=== PATIENT | male | born 1975 | race Caucasian/White ===

== ENCOUNTER → 2016-03-20 | Outpatient (CLI) | payer MEDICARE, BC ==
[~2016-03-20] MED LIST: DEPAKOTE ER 50500 MG PO; ESKALITH C450 MG/TAB PO; KLONOPIN WAFERS1 MG PO
== END ==
LOC: BHSO 13:00
DX: F20.89 Other schizophrenia (principal)

== ENCOUNTER → 2016-05-22 | Outpatient (CLI) | payer MEDICARE, BC | LOC: BHSO 12:37 | DX: F20.9 Schizophrenia, unspecified (principal) ==

== ENCOUNTER → 2016-08-19 | Outpatient (CLI) | payer MEDICARE, BC | LOC: BHSO 09:58 | DX: F20.9 Schizophrenia, unspecified (principal) ==

== ENCOUNTER → 2016-11-18 | Outpatient (CLI) | payer MEDICARE, BC | LOC: BHSO 09:56 | DX: F20.9 Schizophrenia, unspecified (principal) ==

== ENCOUNTER → 2017-02-13 | Outpatient (CLI) | payer MEDICARE, BC | LOC: BHSO 13:20 | DX: F20.9 Schizophrenia, unspecified (principal) | CPT/HCPCS: G0463 ==

== ENCOUNTER 2018-07-20 17:52 | Emergency (ER) | payer MEDICARE, BC ==
[2018-07-20 17:59] VITALS: BP 144/116; TEMP 97.5
[2018-07-20 18:23] LABS: BASO # 0.1 (0.0-0.2); BASO % 1.1 % (0.0-2.0); EOS # 0.2 (0.0-0.7); EOS % 3.4 % (0-4.0); GRAN # 3.3 (1.4-6.5); GRAN % 57.3 % (42.2-75.2); HEMATOCRIT 42.9 % (42.0-52.0); HEMOGLOBIN 15.2 g/dl (13.5-18.0); LYMPH # 1.5 (1.2-3.4); LYMPH % 26.5 % (20.0-51.0); MEAN CELL VOLUME 87 fl (80.0-100.0); MEAN CORPUSCULAR HEMOGLOBIN 31 pg (27.0-31.0); MEAN CORPUSCULAR HGB CONC 35 g/dl (33.0-37.0); MEAN PLATELET VOLUME 10.7 fl (7.4-10.4); MONO # 0.7 (0.1-0.6); MONO % 11.5 % (1.7-9.3); PLATELET COUNT 175 K/mm3 (130-400); RED BLOOD COUNT 4.93 M/mm3 (4.20-5.60); REDCELL DISTRIBUTION WIDTH-CV 11.3 % (11.5-14.5)
[2018-07-20 18:38] LABS: ALANINE AMINOTRANSFERASE 11 U/L (21-72); ALBUMIN 4.4 gm/dL (3.5-5.0); ALKALINE PHOSPHATASE 63 U/L (50-136); ANION GAP 14 mmol/L (7-16); AST,SGOT 48 U/L (15-37); BILIRUBIN,TOTAL 0.5 mg/dL (0.0-1.0); BLOOD UREA NITROGEN 12 mg/dL (9-20); CARBON DIOXIDE 25 mmol/L (22-30); CHLORIDE 98 mmol/L (98-107); CREATININE, serum 1.12 (0.66-1.25); GLUCOSE 174 mg/dL (74-106); SODIUM 136 mmol/L (137-145); TOTAL PROTEIN 7.7 gm/dL (6.4-8.2)
[2018-07-20 18:43] LABS: C-REACTIVE PROTEIN < 0.5 mg/dL (0.0-0.9)
[2018-07-20 18:53] LABS: LITHIUM < 0.2 mmol/L (0.6-1.2)
[2018-07-20] MEDS ORDERED: DEPAKENE 250 MG/1 ML PO (18:56)
[2018-07-20] MEDS ORDERED: LATUDA40 MG PO (18:56)
[2018-07-20] MEDS ORDERED: KLONOPIN 1MG1 MG PO (18:56)
[2018-07-20] MEDS ORDERED: LITHIUM CI8 MEQ/5 ML PO (18:57)
[2018-07-20] MEDS ORDERED: PRELONE15 MG/5 ML PO (20:08)
[2018-07-20] MEDS ORDERED: FAMVIR 500500 MG/TAB PO (20:08)
[2018-07-20 20:44] VITALS: PULSE 81
== END 2018-07-20 20:44 | disposition home or self-care (01) ==
LOC: COL.ER 17:52
PROVIDERS: Emergency Medicine
DX: G51.0 Bell's palsy (principal); F25.9 Schizoaffective disorder, unspecified; F41.9 Anxiety disorder, unspecified
CPT/HCPCS: J7510